=== PATIENT | female | born 1975 ===

== ENCOUNTER → 2017-08-18 | Outpatient (CLI) | payer OTHER ==
[~2017-08-18] MED LIST: BIRTH CONTROL; CIPRO500 MG PO; CYCL10 PO; HYDACE5 PO; IBUP800 PO; OXYACE5T PO; [UNRECOGNIZED DRUG - OTHER] PO
== END ==
LOC: LAB SHORT 17:05 → LAB 17:05
PROVIDERS: Registered Nurse Community Health
DX: Z12.4 Encounter for screening for malignant neoplasm of cervix (principal)
CPT/HCPCS: 87624; G0123

== ENCOUNTER → 2017-10-15 | Outpatient (CLI) | payer OTHER | LOC: LAB 12:29 → LAB SHORT 12:29 | DX: N89.8 Other specified noninflammatory disorders of vagina (principal) | CPT/HCPCS: 87070; 87205 ==

== ENCOUNTER → 2021-02-03 | Outpatient (CLI) | payer BC | END | disposition home or self-care (01) | LOC: LAB SHORT 14:07 → LAB 14:07 | DX: N39.0 Urinary tract infection, site not specified (principal) | CPT/HCPCS: 87086 ==